=== PATIENT | female | born 1995 | race Caucasian/White ===

== ENCOUNTER 2022-08-13 22:04 | Emergency (ER) | payer BC, MEDICAID ==
[~2022-08-13] VITALS: Ht 165.1 cm; Wt 57.6 kg
--- NOTE | 2022-08-13 22:45 | NUR ---
BIBS C/O "MENSTRUAL CUP IS STUCK". AXO4 AMBULATORY. NO RESPIRATORY DISTRESS
[2022-08-14 00:01] VITALS: BP 125/88
--- NOTE | 2022-08-14 00:01 | NUR ---
Patient discharged to home in stable condition. Written and verbal after care instructions given. Patient verbalizes understanding of instruction.
== END 2022-08-14 00:03 | disposition home or self-care (01) ==
LOC: ER 22:06
DX: T19.2XXA Foreign body in vulva and vagina, initial encounter (principal)